=== PATIENT | female | born 1955 | race Caucasian/White ===

== ENCOUNTER 2017-04-29 08:51 | Day surgery (SDC) | payer OTHER ==
[2017-04-29] MEDS ORDERED: Sodium Chloride 0.9% 20 ML ONE (09:08)
[2017-04-29] MEDS ORDERED: MANNITOL IVPB SCH (10:00)
[2017-04-29] MEDS ORDERED: ZOLEDRONIC ACID IVPB SCH (10:00)
[2017-04-29] MEDS ORDERED: WATER IVPB SCH (10:00)
[2017-04-29 16:02] VITALS: BP 108/62; TEMP 98.6
[2017-04-30] MEDS ORDERED: WATER IVPB SCH (10:00)
[2017-04-30] MEDS ORDERED: MANNITOL IVPB SCH (10:00)
[2017-04-30] MEDS ORDERED: ZOLEDRONIC ACID IVPB SCH (10:00)
== END 2017-04-29 16:03 | disposition home or self-care (01) ==
LOC: ONC/OP 08:51
PROVIDERS: ATTEND Internal Medicine
DX: M81.8 Other osteoporosis without current pathological fracture (principal); Z88.1 Allergy status to other antibiotic agents
CPT/HCPCS: 96413; A4216; J3489

== ENCOUNTER 2017-06-14 08:47 | Outpatient (CLI) | payer OTHER ==
--- NOTE | 2017-06-14 09:58 | MMO ---
BILATERAL SCREENING MAMMOGRAM: Date: 06/14/2017 HISTORY: A 61-year-old female. Routine screening mammography. COMPARISON: 05/11/2016, 05/09/2015, 2013. TECHNIQUE: CC and MLO views of both breasts are submitted for interpretation. This patient's mammogram is reviewed with the assistance of computer-aided detection. FINDINGS: The breasts are composed of scattered fibroglandular tissue. Bilaterally, no suspicious dominant mas s, architectural distortion, or suspicious calcifications. Stable asymmetry of the right breast. IMPRESSION: BIRADS 2: Benign Finding(s) RECOMMENDATION: Annual mammogram. POS: [facility]
== END 2017-06-14 08:48 | disposition home or self-care (01) ==
LOC: SCSMAMMO 08:47
PROVIDERS: ATTEND Internal Medicine
DX: Z12.31 Encounter for screening mammogram for malignant neoplasm of breast (principal)
CPT/HCPCS: 77067; G0202

== ENCOUNTER 2018-04-21 07:57 | Day surgery (SDC) | payer OTHER ==
[2018-04-21] MEDS ORDERED: Sodium Chloride 0.9% 20 ML ONE (08:27)
[2018-04-21] MEDS ORDERED: MANNITOL IVPB SCH (08:30)
[2018-04-21] MEDS ORDERED: ZOLEDRONIC ACID IVPB SCH ×3 (08:30→09:00)
[2018-04-21] MEDS ORDERED: WATER IVPB SCH (08:30)
[2018-04-21] MEDS ORDERED: [UNRECOGNIZED DRUG - OTHER] IVPB SCH ×2 (09:00)
[2018-04-21 09:21] VITALS: BP 117/62; TEMP 98.6
== END 2018-04-21 09:21 | disposition home or self-care (01) ==
LOC: ONC/OP 07:57
PROVIDERS: ATTEND Internal Medicine
DX: M81.0 Age-related osteoporosis without current pathological fracture (principal); Z88.8 Allergy status to other drugs, medicaments and biological substances
CPT/HCPCS: 96365; J3489

== ENCOUNTER 2018-07-06 08:17 | Outpatient (CLI) | payer OTHER ==
--- NOTE | 2018-07-06 10:51 | MMO ---
EXAM: BILATERAL DIGITAL SCREENING MAMMOGRAMS: History: 62-year-old female presents for digital screening mammography. Comparison: 06-14-17, 05-11-16, 05-09-15, 05-31-14 This study is interpreted with the assistance of computer aided detection. FINDINGS: Scattered areas of fibroglandular density are noted bilaterally. Stable nodular mass in the central s ubareolar aspect of the right breast. No direct or indirect evidence of malignancy. IMPRESSION: BIRADS category 2 - benign findings. Continue annual follow up mammograms. POS: [facility]
== END 2018-07-06 08:18 | disposition home or self-care (01) ==
LOC: SCSMAMMO 08:17
PROVIDERS: ATTEND Internal Medicine
DX: Z12.31 Encounter for screening mammogram for malignant neoplasm of breast (principal)
CPT/HCPCS: 77067

== ENCOUNTER 2019-03-14 12:00 | Outpatient (CLI) | payer OTHER ==
--- NOTE | 2019-03-14 12:28 | RAD ---
EXAM: XR Thoracic Spine 3 V STANDARD DATE: 03/14/2019 12:00 AM INDICATION: Back pain COMPARISON: January 18, 2011 FINDING: There are chronic appearing mild wedge compression abnormalities at T10 and T11. There is m oderate multilevel disc degenerative disease that is mildly progressed. Spinal alignment appears within normal limits. There is an ACDF involving C5-C6. IMPRESSION:Stable mild chronic compression abnormalities at T10 and T11. Moderate multilevel spondylo sis of the thoracic spine appears slightly worse than on the prior exam.
== END 2019-03-14 12:01 | disposition home or self-care (01) ==
LOC: SCSRAD 12:00
PROVIDERS: ATTEND Psychiatry & Neurology Neurology
DX: S22.000A Wedge compression fracture of unspecified thoracic vertebra, initial encounter for closed fracture (principal); M47.814 Spondylosis without myelopathy or radiculopathy, thoracic region
CPT/HCPCS: 72072

== ENCOUNTER 2019-04-27 10:54 | Day surgery (SDC) | payer OTHER ==
[~2019-04-27 10:54] MED LIST: ZOLEDRONIC ACID IVPB SCH; [UNRECOGNIZED DRUG - OTHER] IVPB SCH
[2019-04-27] MEDS ORDERED: Sodium Chloride 0.9% 20 ML ONE (10:59)
[2019-04-27 11:08] VITALS: BP 125/64; TEMP 98.5
== END 2019-04-27 14:11 | disposition home or self-care (01) ==
LOC: ONC/OP 10:54
PROVIDERS: ATTEND Internal Medicine
DX: M81.0 Age-related osteoporosis without current pathological fracture (principal)
CPT/HCPCS: 96365; J3489

== ENCOUNTER 2020-01-11 08:25 | Outpatient (CLI) | payer OTHER ==
--- NOTE | 2020-01-11 14:04 | NM ---
RADIONUCLIDE GASTRIC EMPTYING SCAN: 01/11/20 HISTORY: Nausea. RADIOPHARMACEUTICAL: 2.1 millicuries technetium 99m sulfur colloid administered orally in scrambled eggs. FINDINGS: There is 47% emptying of the ingested gastric contents at 1 hour, 77% emptying at 2 hours, 90% emptyi ng at 3 hours and 95% emptying at 4 hours. The calculated gastric emptying halftime measures 67 minutes. IMPRESSION: Normal exam. POS: [facility]
== END 2020-01-11 08:26 | disposition home or self-care (01) ==
LOC: NM 08:25
PROVIDERS: ATTEND Physician Assistant Medical
DX: K30 Functional dyspepsia (principal); R11.0 Nausea; R68.81 Early satiety
CPT/HCPCS: 78264; A9541

== ENCOUNTER → 2020-05-30 | Day surgery (SDC) | payer OTHER ==
[2020-05-30 13:39] VITALS: BP 116/59; TEMP 98.4
== END ==
LOC: ONC/OP 11:54
PROVIDERS: ATTEND Internal Medicine
DX: M81.0 Age-related osteoporosis without current pathological fracture (principal); Z88.6 Allergy status to analgesic agent
CPT/HCPCS: 96374; J3489

== ENCOUNTER 2020-08-01 13:22 | Outpatient (CLI) | payer OTHER ==
--- NOTE | 2020-08-01 14:15 | MMO ---
Bilateral MAMMO Bilat Screen [facility]. CLINICAL HISTORY: Patient is 64 years old and is seen for screening. The patient has the following family history of breast cancer: sister, at age 43. The patient has a history of other cancer. The patient has a history of right Excisional Biopsy in - benign. VIEWS: The views performed were: bilateral craniocaudal with tomosynthesis; bilateral mediolateral oblique with tomosynthesis; and right exaggerated craniocaudal. FILMS COMPARED: The present examination has been compared to prior imaging studies performed at [facility] on 06/03/2005, 07/15/2006, 07/18/2007 and 07/25/2008. This study has been interpreted with the assistance of computer-aided detection. MAMMOGRAM FINDINGS: There are scattered fibroglandular densities. There are no suspicious masses, suspicious calcifications, or new areas of architectural distortion. IMPRESSION: THERE IS NO MAMMOGRAPHIC EVIDENCE OF MALIGNANCY. A ROUTINE FOLLOW-UP MAMMOGRAM IN 1 YEAR IS RECOMMENDED. THE RESULTS OF THIS EXAM WERE SENT TO THE PATIENT. ACR BI-RADS Category 1 - Negative MAMMOGRAPHY NOTE: 1. A negative mammogram report should not delay a biopsy if a dominant of clinically suspicious mass is present. 2. Approximately 10% to 15% of breast cancers are not detected by mammography. 3. Adenosis and dense breasts may obscure an underlying neoplasm. Reported by: LINK CABRERA MD Electonically Signed: [id number]
== END 2020-08-01 13:23 | disposition home or self-care (01) ==
LOC: BICMAMMO 13:22
PROVIDERS: ATTEND Internal Medicine
DX: Z12.31 Encounter for screening mammogram for malignant neoplasm of breast (principal); Z91.89 Other specified personal risk factors, not elsewhere classified; Z85.89 Personal history of malignant neoplasm of other organs and systems; Z80.3 Family history of malignant neoplasm of breast
CPT/HCPCS: 77063; 77067

== ENCOUNTER 2021-08-07 08:41 | Day surgery (SDC) | payer BC ==
[~2021-08-07 08:41] MED LIST changes: +MANNITOL IVPB SCH; +[UNRECOGNIZED DRUG - OTHER] IVPB SCH
[2021-08-07] MEDS ORDERED: Sodium Chloride 0.9% 10 ML ONE (09:17)
[2021-08-07 09:44] VITALS: BP 124/54; TEMP 98.4
== END 2021-08-07 09:44 | disposition home or self-care (01) ==
LOC: ONC/OP 08:41
PROVIDERS: ATTEND Internal Medicine
DX: M81.0 Age-related osteoporosis without current pathological fracture (principal); Z88.6 Allergy status to analgesic agent
CPT/HCPCS: 96365; J3489; J7050

== ENCOUNTER 2021-08-21 14:17 | Outpatient (CLI) | payer BC | END 2021-08-21 14:18 | disposition home or self-care (01) | LOC: BICMAMMO 14:17 | PROVIDERS: ATTEND Internal Medicine | DX: Z12.31 Encounter for screening mammogram for malignant neoplasm of breast (principal); Z80.3 Family history of malignant neoplasm of breast; Z85.89 Personal history of malignant neoplasm of other organs and systems; Z91.89 Other specified personal risk factors, not elsewhere classified | CPT/HCPCS: 77063; 77067 ==

== ENCOUNTER 2023-01-04 08:19 | Outpatient (CLI) | payer OTHER | END 2023-01-04 08:20 | disposition home or self-care (01) | LOC: BICMAMMO 08:19 | PROVIDERS: ATTEND Internal Medicine | DX: M81.0 Age-related osteoporosis without current pathological fracture (principal); M85.851 Other specified disorders of bone density and structure, right thigh; M85.852 Other specified disorders of bone density and structure, left thigh | CPT/HCPCS: 77080 ==

== ENCOUNTER 2025-02-09 09:22 | Emergency (ER) | payer MEDICARE, OTHER ==
[2025-02-09] MEDS ORDERED: Acetaminophen 500 MG TAB ONE (09:56)
[2025-02-09] MEDS ORDERED: Ketorolac Tromethamine 30 MG (1 mL) VIAL ONE (10:53)
[2025-02-09] MEDS ORDERED: KETAMINE 100 MG/ML (5ML VIAL) ONE (10:56)
== END 2025-02-09 12:23 | disposition home or self-care (01) ==
LOC: ERS 09:22
DX: S52.502A Unspecified fracture of the lower end of left radius, initial encounter for closed fracture (principal); E03.9 Hypothyroidism, unspecified; Z79.890 Hormone replacement therapy; W01.0XXA Fall on same level from slipping, tripping and stumbling without subsequent striking against object, initial encounter; Y92.89 Other specified places as the place of occurrence of the external cause
CPT/HCPCS: 73110; J1885; J3010; 25605; 96374; 96375; 99152

== ENCOUNTER 2025-02-18 06:31 | Day surgery (SDC) | payer MEDICARE, OTHER ==
[2025-02-15 09:22] VITALS: BMI 24.7
[2025-02-18] MEDS ORDERED: Ropivacaine 0.5% HCl/PF (150 MG/30 ML VIAL) ONE (07:55)
[2025-02-18] MEDS ORDERED: Ropivacaine 0.2% HCl/PF 20 ML ONE (07:56)
[2025-02-18] MEDS ORDERED: PROPOFOL 20 ML ONE (08:31)
[2025-02-18] MEDS ORDERED: CEFAZOLIN 1 GM VIAL ONE (08:33)
[2025-02-18] MEDS ORDERED: Ondansetron PF 4 MG/2 ML Vial ONE (08:54)
[2025-02-18] MEDS ORDERED: Ketorolac Tromethamine 30 MG (1 mL) VIAL ONE (08:54)
[2025-02-18] MEDS ORDERED: Ondansetron PF 4 MG/2 ML Vial IVP PRN (09:00)
[2025-02-18] MEDS ORDERED: Ropivacaine 0.2% 550 ML 550 ML NERVE BLCK SCH (09:00)
[2025-02-18] MEDS ORDERED: HYDROcodone/Acetaminophen 10/325 mg Tablet PO PRN ×2 (09:00)
[2025-02-18] MEDS ORDERED: Ketorolac Tromethamine 30 MG (1 mL) VIAL IVP SCH (12:00)
== END 2025-02-18 11:14 | disposition home or self-care (01) ==
LOC: SDC 06:31
PROVIDERS: ATTEND Orthopaedic Surgery
PROC: 0PSJ04Z Reposition Left Radius with Internal Fixation Device, Open Approach (ICD-10-PCS; principal; 2025-02-18)
PROC: 3E0T3BZ Introduction of Anesthetic Agent into Peripheral Nerves and Plexi, Percutaneous Approach (ICD-10-PCS; 2025-02-18)
DX: S52.572A Other intraarticular fracture of lower end of left radius, initial encounter for closed fracture (principal); E03.9 Hypothyroidism, unspecified; F32.A Depression, unspecified; F41.9 Anxiety disorder, unspecified; Z90.49 Acquired absence of other specified parts of digestive tract; Z90.710 Acquired absence of both cervix and uterus; Z88.6 Allergy status to analgesic agent; Z79.890 Hormone replacement therapy; Z79.899 Other long term (current) drug therapy; W19.XXXA Unspecified fall, initial encounter
CPT/HCPCS: 25609; 64416; 73090; A4306; C1713 ×5; J0665; J0690; J1100; J1885; J2250; J2405; J2704; J2795 ×3; J3010